=== PATIENT | male | born 1995 | race Caucasian/White ===

== ENCOUNTER 2022-11-10 04:08 | Emergency (ER) | payer OTHER, SELFPAY ==
[2022-11-10 04:17] VITALS: BP 142/79; PULSE 54; RESP 18; TEMP 36.4; O2SAT 98
--- NOTE | 2022-11-10 04:30 | ED.DENTAL1 ---
HPI - Dental/Oral General Chief complaint: Dental/Oral Stated complaint: TOOTH PAIN Time Seen by Provider: 11/10/22 04:13 Source: patient Mode of arrival: walk-in Limitations: no limitations History of Present Illness HPI Narrative: Presenting with right lower Dental pain that started a few days ago but got worse over the last few hours, he could not sleep because of the pain and it is radiating to his right ear No other complaints Related Data Previous Rx's Medication Instructions Recorded amoxicillin 875 mg-potassium 1 tab PO BID #14 tabs 11/10/22 clavulanate 125 mg tablet diclofenac sodium 75 mg 75 mg PO BID PRN pain #10 tabs 11/10/22 tablet,delayed release Allergies Allergy/AdvReac Type Severity Reaction Status Date / Time No Known Drug Allergies Allergy Verified 11/10/22 04:24 Review of Systems ROS Status of ROS 10 or more systems reviewed and unremarkable except as noted in history and below PFSH PFS Social History Smoking status: Current every day smoker Exam Narrative Exam Narrative: Nurses notes and vital signs reviewed and patient is not hypoxic. Dental exam shows multiple decayed tooth with poor dental hygiene with this tooth #32 is surrounded by inflamed gum General: Well-appearing and in no apparent distress. Skin: Warm, dry, no pallor noted. No rash. Head: Normocephalic, atraumatic. Neck: Supple, non-tender. Eye: Pupils are equal, round and EOMI. No scleral icterus. Ears, Nose, Mouth, and Throat: TM are clear, no nasal mucosal hypertrophy. Oral mucosa is moist, no posterior oropharynx erythema, uvula is mid-line Cardiovascular: Regular Rate and Rhythm without murmur, gallop or rub. Respiratory: No accessory muscle use or respiratory distress. Lungs are clear to auscultation, no wheezing, rales or rhonchi Chest Wall: no tenderness Back: No midline thoracic or lumbar vertebral tenderness. No CVA tenderness Musculoskeletal: normal ROM, no calf or popliteal tenderness, no lower extremity edema/swelling GI: Abdomen is soft, non-distended. Normal bowel sounds. No masses appreciated. No tenderness to palpation. No rebound, guarding, or rigidity noted. Neurological: A&O x4. No cranial nerve dysfunction observed. No truncal ataxia. Moves all extremities. Sensation intact. Psychiatric: Cooperative and interactive. Normal mood and affect. Constitutional Vital Signs, click to edit/add: Last Vital Signs Temp 97.5 F L 11/10/22 04:17 Pulse 54 L 11/10/22 04:17 Resp 18 11/10/22 04:17 BP 142/79 H 11/10/22 04:17 Pulse Ox 98 11/10/22 04:17 O2 Del Method Room Air 11/10/22 04:17 Course Vital Signs Vital signs: Vital Signs Temperature 97.5 F L 11/10/22 04:17 Pulse Rate 54 L 11/10/22 04:17 Respiratory Rate 18 11/10/22 04:17 Blood Pressure 142/79 H 11/10/22 04:17 Pulse Oximetry 98 11/10/22 04:17 Oxygen Delivery Method Room Air 11/10/22 04:17 Temperature 97.5 F L 11/10/22 04:17 Pulse Rate 54 L 11/10/22 04:17 Respiratory Rate 18 11/10/22 04:17 Blood Pressure 142/79 H 11/10/22 04:17 Pulse Oximetry 98 11/10/22 04:17 Oxygen Delivery Method Room Air 11/10/22 04:17 MDM - Dental/Oral MDM Narrative Medical decision making narrative: Supportive care with the lidocaine viscous as well as naproxen in the Emergency Room and the patient was started on Augmentin The patient was instructed about the importance of follow-up with a dentist at outpatient The patient is to followup with primary care physician in next 2-3 days or to return to the emergency department should any of the signs or symptoms worsen or new symptoms develop. The patient agrees with the following Diagnosis and Treatment plan and the patient will be discharged home. Discharge Plan Discharge Chief Complaint: Dental/Oral Clinical Impression: Dental abscess Patient Disposition: Home, Self-Care Time of Disposition Decision: 04:34 Condition: Good Mode of Transportation: Private Vehicle Prescriptions / Home Meds: New amoxicillin-pot clavulanate 875-125 mg tablet 1 tab PO BID Qty: 14 0RF diclofenac sodium 75 mg tablet,delayed release (DR/EC) 75 mg PO BID PRN (Reason: pain) Qty: 10 0RF Instructions: Dental Abscess (ED), Toothache (ED) Additional Instructions: please provide dental referral Stand Alone Forms: Portal Instructions Referrals: Physician,Non-Staff, MD [Primary Care Provider] - 1 week
[2022-11-10] MEDS: NAPROXEN 250 MG TABLET 500 MG PO (04:57)
[2022-11-10] MEDS: BENZOCAINE 30 ML, lidocaine HCL 15 ML MM (05:28)
== END 2022-11-10 05:30 | disposition home or self-care (01) ==
PROVIDERS: Emergency Provider Emergency Medicine
DX: K04.7 Periapical abscess without sinus (principal); F17.210 Nicotine dependence, cigarettes, uncomplicated
CPT/HCPCS: 99283

== ENCOUNTER 2023-01-25 18:32 | Emergency (ER) | payer OTHER, SELFPAY ==
[2023-01-25 18:35] VITALS: BP 138/89; PULSE 65; RESP 14; TEMP 36.9; O2SAT 98; BMI 22.4
--- NOTE | 2023-01-25 18:38 | XR_ITS ---
The [address] [address] Patient Name: CATE GARCÍA MRN: [id number] date: 1995 Sex: M Assigned Patient Location: ER Current Patient Location: ER Accession/Order Number: [id number] Exam Date: 01/25/2023 18:45 Report Date: 01/25/2023 19:44 At the request of: BELKIS HAWK Procedure: XR foot LT min 3V EXAM: XR foot LT min 3V, XR ankle LT min 3V HISTORY: left foot injury with sledgehammer COMPARISON: None. TECHNIQUE: 3 views of the left foot, 3 views of the left ankle are performed. FINDINGS: There is no acute fracture. The bony structures are intact. Joint spaces are maintained. The ankle mortise is preserved. Unremarkable soft tissues. XR/XR foot LT min 3V IMPRESSION: No acute bony abnormality. Electronically authenticated by: RAMSEY CONNOR Date: 01/25/2023 19:44
--- NOTE | 2023-01-25 18:38 | XR_ITS ---
The [address] [address] Patient Name: CATE GARCÍA MRN: [id number] date: 1995 Sex: M Assigned Patient Location: ER Current Patient Location: ER Accession/Order Number: [id number] Exam Date: 01/25/2023 18:45 Report Date: 01/25/2023 19:44 At the request of: BELKIS HAWK Procedure: XR ankle LT min 3V EXAM: XR foot LT min 3V, XR ankle LT min 3V HISTORY: left foot injury with sledgehammer COMPARISON: None. TECHNIQUE: 3 views of the left foot, 3 views of the left ankle are performed. FINDINGS: There is no acute fracture. The bony structures are intact. Joint spaces are maintained. The ankle mortise is preserved. Unremarkable soft tissues. XR/XR ankle LT min 3V IMPRESSION: No acute bony abnormality. Electronically authenticated by: RAMSEY CONNOR Date: 01/25/2023 19:44
[2023-01-25] MEDS: IBUPROFEN 400 MG TABLET 800 MG PO (19:02)
--- NOTE | 2023-01-25 19:07 | ED_ITS ---
HPI - Extremity Injury (Lower) General Chief Complaint: Extremity Injury, Lower Stated Complaint: Lower Extremity Injury Time Seen by Provider: 01/25/23 18:34 Mode of arrival: Wheelchair History of Present Illness HPI Narrative: 27-year-old male presents for left foot injury. This morning he hit it with a 10 pound sledgehammer. He hit the medial aspect. It hurts to walk on it and the pain is moderate. There is no bleeding and no other injury was sustained. Related Data Previous Rx's Medication Instructions Recorded amoxicillin 875 mg-potassium 1 tab PO BID #14 tabs 11/10/22 clavulanate 125 mg tablet diclofenac sodium 75 mg 75 mg PO BID PRN pain #10 tabs 11/10/22 tablet,delayed release Allergies Allergy/AdvReac Type Severity Reaction Status Date / Time No Known Drug Allergies Allergy Verified 11/10/22 04:24 Review of Systems ROS Narrative A ten point review of systems is negative except as noted above. PFSH PFSH Social History Smoking status: Current every day smoker Exam Narrative Exam Narrative: Nurses note and vital signs reviewed and patient is not hypoxic. General: The patient appears well and in no apparent distress. Patient is resting comfortably on cart. Skin: Warm, dry, no pallor noted. There is no rash noted. Head: Normocephalic, atraumatic Eye: Normal conjunctiva, no drainage Ears, Nose, Mouth, and Throat: oral mucosa is moist. Nares patent. Cardiovascular: Regular Rate and Rhythm Respiratory: Patient is in no distress, no accessory muscle use Back: non-tender GI: nontender Musculoskeletal: left ankle is not swollen. He has an area of erythema at the medial aspect of his left foot. No laceration. This area is tender. Neurological: A&O, normal speech Psychiatric: Cooperative Constitutional Vital Signs, click to edit/add: Last Vital Signs Temp 98.4 F 01/25/23 18:35 Pulse 65 01/25/23 18:35 Resp 14 01/25/23 18:35 BP 138/89 01/25/23 18:35 Pulse Ox 98 01/25/23 18:35 O2 Del Method Room Air 01/25/23 18:35 Course Vital Signs Vital signs: Vital Signs Temperature 98.4 F 01/25/23 18:35 Pulse Rate 65 01/25/23 18:35 Respiratory Rate 14 01/25/23 18:35 Blood Pressure 138/89 01/25/23 18:35 Pulse Oximetry 98 01/25/23 18:35 Oxygen Delivery Method Room Air 01/25/23 18:35 Temperature 98.4 F 01/25/23 18:35 Pulse Rate 65 01/25/23 18:35 Respiratory Rate 14 01/25/23 18:35 Blood Pressure 138/89 01/25/23 18:35 Pulse Oximetry 98 01/25/23 18:35 Oxygen Delivery Method Room Air 01/25/23 18:35 MDM - Extremity Injury (Lower) MDM Narrative Medical decision making narrative: x-rays are negative per radiologist and he is discharged home. He was recommend ed ice rest and elevation and Motrin. Treatment diagnosis and follow-up were discussed with the patient. Differential Diagnosis Differential diagnosis: Likely other (foot contusion, foot fracture) Imaging Data left foot x-ray: Radiologist's impression: Procedure: XR foot LT min 3V EXAM: XR foot LT min 3V, XR ankle LT min 3V HISTORY: left foot injury with sledgehammer COMPARISON: None. TECHNIQUE: 3 views of the left foot, 3 views of the left ankle are performed. FINDINGS: There is no acute fracture. The bony structures are intact. Joint spaces are maintained. The ankle mortise is preserved. Unremarkable soft tissues. IMPRESSION: No acute bony abnormality. Electronically authenticated by: RAMSEY CONNOR Date: 01/25/2023 19:44 Discharge Plan Discharge Chief Complaint: Extremity Injury, Lower Clinical Impression: Contusion of foot, left Patient Disposition: Home, Self-Care Time of Disposition Decision: 19:51 Condition: Good Mode of Transportation: Private Vehicle Prescriptions / Home Meds: No Action amoxicillin-pot clavulanate 875-125 mg tablet 1 tab PO BID Qty: 14 0RF diclofenac sodium 75 mg tablet,delayed release (DR/EC) 75 mg PO BID PRN (Reason: pain) Qty: 10 0RF Instructions: Foot Contusion (ED) Stand Alone Forms: Portal Instructions Referrals: Physician,Non-Staff, MD [Primary Care Provider] - 1 week
== END 2023-01-25 20:10 | disposition home or self-care (01) ==
PROVIDERS: Emergency Provider Emergency Medicine
DX: S90.32XA Contusion of left foot, initial encounter (principal); W22.8XXA Striking against or struck by other objects, initial encounter; F17.200 Nicotine dependence, unspecified, uncomplicated
CPT/HCPCS: 73610; 73630; 99284

== ENCOUNTER 2024-01-23 13:24 | Emergency (ER) | payer SELFPAY ==
[2024-01-23 13:31] VITALS: BP 125/77; TEMP 36.8; O2SAT 97; BMI 21.1
[2024-01-23] MEDS: BENZOCAINE 30 ML, lidocaine HCL 15 ML MM (13:42)
--- NOTE | 2024-01-23 13:42 | ED_ITS ---
HPI - Dental/Oral General Chief complaint: Dental/Oral Stated complaint: TOOTH PAIN Time Seen by Provider: 01/23/24 13:32 Source: patient Mode of arrival: walk-in Limitations: no limitations History of Present Illness HPI Narrative: Patient is a 28-year-old male who presents to the emergency department for increasing pain in tooth #29. He has had issues with dental caries for several years, he was seen in this emergency department 1 year ago for the same. He states that the tooth has been broken and he believes he removed almost all of the tooth himself but the root remains. He reports increasing pain radiating to the right ear. No fevers, vomiting or drainage. He is a regular smoker. Related Data Previous Rx's ?Medication ?Instructions ?Recorded amoxicillin 875 mg-potassium 1 tab PO BID #14 tabs 11/10/22 clavulanate 125 mg tablet diclofenac sodium 75 mg 75 mg PO BID PRN pain #10 tabs 11/10/22 tablet,delayed release amoxicillin 500 mg capsule 500 mg PO TID 10 days #30 caps 01/23/24 ketorolac 10 mg tablet 10 mg PO TID PRN pain #10 tabs 01/23/24 Allergies Allergy/AdvReac Type Severity Reaction Status Date / Time No Known Drug Allergies Allergy Verified 11/10/22 04:24 Review of Systems ROS Constitutional Denies: fever or chills Ears, nose, mouth, and throat Denies: throat pain or nasal congestion Respiratory Denies: shortness of breath Gastrointestinal Denies: nausea or vomiting Musculoskeletal Denies: back pain Integumentary/Breast Denies: rash Neurological Reports: headache; Denies: numbness in extremities or weakness in extremities Hematologic/Lymphatic Denies: easy bruising or easy bleeding PFSH PFSH Social History Smoking status: Current every day smoker Little interest or pleasure in doing things: not at all Feeling down, depressed, or hopeless: not at all Exam Narrative Exam Narrative: Gen.: Awake, alert, in no distress Head: Normocephalic, atraumatic ENT: Moist mucous membranes, tooth #29 is eroded to the gumline with root remaining in the gums, no abscess noted. No redness or swelling under the tongue. Clear speech, no facial swelling. No trismus or drooling Respiratory: No respiratory distress Extremities: Moves extremities equally Psych: Normal mood and affect Neuro: No focal neuro deficit Skin: Warm, dry, intact Constitutional Vital Signs, click to edit/add: Last Vital Signs Temp 98.3 F 01/23/24 13:31 Resp 18 01/23/24 13:31 BP 125/77 01/23/24 13:31 Pulse Ox 97 01/23/24 13:31 O2 Del Method Room Air 01/23/24 13:31 Course Vital Signs Vital signs: Vital Signs Temperature 98.3 F 01/23/24 13:31 Respiratory Rate 18 01/23/24 13:31 Blood Pressure 125/77 01/23/24 13:31 Pulse Oximetry 97 01/23/24 13:31 Oxygen Delivery Method Room Air 01/23/24 13:31 Temperature 98.3 F 01/23/24 13:31 Respiratory Rate 18 01/23/24 13:31 Blood Pressure 125/77 01/23/24 13:31 Pulse Oximetry 97 01/23/24 13:31 Oxygen Delivery Method Room Air 01/23/24 13:31 MDM - Dental/Oral MDM Narrative Medical decision making narrative: Patient treated for dental caries, antibiotics and topical analgesia provided. Patient given NSAIDs for home for pain and a dental referral. Return to the ER if symptoms change or worsen SUPERVISED APC VISIT, PHYSICIAN ATTESTATION: Based on the medical record the care appears appropriate. ? Medical Records Attestation: I reviewed the patient's medical records. Discharge Plan Discharge Chief Complaint: Dental/Oral Clinical Impression: Toothache, Dental caries Patient Disposition: Home, Self-Care Time of Disposition Decision: 13:40 Condition: Good Prescriptions / Home Meds: New amoxicillin 500 mg capsule 500 mg PO TID 10 Days Qty: 30 0RF ketorolac 10 mg tablet 10 mg PO TID PRN (Reason: pain) Qty: 10 0RF No Action amoxicillin-pot clavulanate 875-125 mg tablet 1 tab PO BID Qty: 14 0RF diclofenac sodium 75 mg tablet,delayed release (DR/EC) 75 mg PO BID PRN (Reason: pain) Qty: 10 0RF Print Language: Bulgarian Instructions: Toothache (ED) Additional Instructions: Follow up with dental Referrals: Physician,Non-Staff, MD [Primary Care Provider] - 1 week
== END 2024-01-23 13:53 | disposition home or self-care (01) ==
PROVIDERS: Emergency Provider Emergency Medicine
DX: K02.9 Dental caries, unspecified (principal); K08.89 Other specified disorders of teeth and supporting structures; F17.200 Nicotine dependence, unspecified, uncomplicated
CPT/HCPCS: 99283